=== PATIENT | female | born 1980 | race Caucasian/White ===

== ENCOUNTER 2017-05-06 09:48 | Emergency (ER) | payer MEDICARE, MEDICAID ==
[~2017-05-06] VITALS: Ht 167.6 cm; Wt 83.4 kg
[~2017-05-06 09:48] MED LIST: ARIP5TAB4 PO; CHL4T PO; CLOB10TA PO; CLON-528 PO; DEXT1CAP3 PO; ERGOCALCIFEROL PO; FEXO-124 PO; LACOSAMIDE PO; LAMO250T PO; LORA1TAB PO; MAGN30OR PO; Mineral Oil; PARO40TA81 PO; REM15T PO; RISP1TAB13 PO; RISP2TAB97 PO; [UNRECOGNIZED DRUG - CODE] DT
[2017-05-06] MEDS ORDERED: normal saline 1000ml 1,000 ML IV ONE (10:03)
[2017-05-06 10:35] LABS: BASOPHILS % (AUTO) 0.4 % (0-1); EOSINOPHILS # (AUTO) 0.2 X10'3 (0-0.9); EOSINOPHILS % (AUTO) 2.6 % (0-6); HEMATOCRIT 36.6 % (35.0-45.0); HEMOGLOBIN 12.8 g/dl (12.0-16.0); LYMPHOCYTES # (AUTO) 1.7 X10'3 (1.1-4.8); LYMPHOCYTES % (AUTO) 26.3 % (21-51); MEAN CORPUSCULAR HGB CONC 34.8 % (33.0-36.5); MEAN CORPUSCULAR VOLUME 86.2 FL (78-98); MEAN PLATELET VOLUME 6.9 FL (7.4-10.4); MONOCYTES # (AUTO) 0.3 X10'3 (0-0.9); NEUTROPHILS # (AUTO) 4.4 X10'3 (1.8-7.7); NEUTROPHILS % (AUTO) 66.7 % (42-75); PLATELET COUNT 259 X10'3 (140-440); RED BLOOD COUNT 4.25 X10'6 (4.20-5.60); RED CELL DISTRIBUTION WIDTH 12.9 % (11.5-14.5); WHITE BLOOD COUNT 6.6 X10'3 (4.5-11.0)
[2017-05-06 10:44] LABS: INR 0.9 INR; PARTIAL THROMBOPLASTIN TIME 26 SECONDS (22-32); PROTHROMBIN TIME 9.6 SECONDS (9.0-12.0)
[2017-05-06 10:58] LABS: ALANINE AMINOTRANSFERASE 104 U/L (12-78); ALBUMIN 3.3 G/DL (3.4-5.0); ALBUMIN/GLOBULIN RATIO 0.8 (1.1-1.5); ALKALINE PHOSPHATASE 142 IU/L (46-116); ANION GAP 8 (8-16); ASPARTATE AMINO TRANSFERASE 50 U/L (10-37); BILIRUBIN,TOTAL 0.4 MG/DL (0.1-1.0); BLOOD UREA NITROGEN 9 MG/DL (7-18); BUN/CREATININE RATIO 10.2 (6.6-38.0); CALCIUM 8.7 MG/DL (8.5-10.1); CHLORIDE 99 MMOL/L (99-107); CREATINE KINASE 121 U/L (26-192); CREATININE 0.88 MG/DL (0.40-0.90); GLUCOSE 100 MG/DL (70-104); MAGNESIUM 2.2 MG/DL (1.5-2.4); POTASSIUM 4.1 MMOL/L (3.5-5.1); SODIUM 134 MMOL/L (135-145); TOTAL CARBON DIOXIDE 26.8 MMOL/L (24-32); TOTAL PROTEIN 7.7 G/DL (6.4-8.2); eGFR 74 ML/MIN
[2017-05-06] MEDS ORDERED: iohexol 300mg/ml 100ml inj. ONE (11:00)
[2017-05-06] MEDS ORDERED: LORazepam 1 MG tablet PO ONE (11:50)
[2017-05-06 12:52] VITALS: BP 124/73
== END 2017-05-06 13:02 | disposition home or self-care (01) ==
LOC: ER 09:48
DX: R56.9 Unspecified convulsions (principal); Z79.899 Other long term (current) drug therapy; Z88.8 Allergy status to other drugs, medicaments and biological substances
CPT/HCPCS: 36415; 70470; 71045; 80053; 82550; 83735; 84443; 85025; 85610; 85730; 93005; 96360; 96361; 99285; J7030; Q9967

== ENCOUNTER 2018-10-09 14:58 | Emergency (ER) | payer MEDICARE, MEDICAID ==
[~2018-10-09] VITALS: Ht 162.6 cm; Wt 90.0 kg
--- NOTE | 2018-10-09 16:06 | NUR ---
DR CHANDLER CONSULTING WITH DR KARENA LIRIANO
[2018-10-09 16:32] VITALS: BP 124/78
[2018-10-10] MEDS ORDERED: MULT-685 PO (20:17)
[2018-10-10] MEDS ORDERED: IBUP-1985 PO (20:17)
[2018-10-10] MEDS ORDERED: LEVO1TBD13 PO (20:17)
[2018-10-10] MEDS ORDERED: OMEP-50 PO (20:17)
[2018-10-10] MEDS ORDERED: PALI6TAB PO (20:17)
[2018-10-10] MEDS ORDERED: DOCU100C33 PO (20:17)
[2018-10-10] MEDS ORDERED: PARO40TA4 PO (20:17)
[2018-10-10] MEDS ORDERED: KEN0.1O TP (20:17)
[2018-10-10] MEDS ORDERED: FLUT16SP2 BOTHNARES (20:17)
[2018-10-10] MEDS ORDERED: LACO200T2 PO (20:17)
[2018-10-10] MEDS ORDERED: GABA600T13 PO (20:17)
[2018-10-10] MEDS ORDERED: OXCA300T16 PO (20:17)
[2018-10-10] MEDS ORDERED: POLY17PO10 PO (20:17)
[2018-10-10] MEDS ORDERED: LORA10TA7 PO (20:17)
== END 2018-10-09 16:36 | disposition home or self-care (01) ==
LOC: ER 14:59
DX: T18.2XXA Foreign body in stomach, initial encounter (principal); S40.022A Contusion of left upper arm, initial encounter; S40.811A Abrasion of right upper arm, initial encounter; S80.812A Abrasion, left lower leg, initial encounter; S80.811A Abrasion, right lower leg, initial encounter; X58.XXXA Exposure to other specified factors, initial encounter; Y93.89 Activity, other specified; Y92.89 Other specified places as the place of occurrence of the external cause; Y99.8 Other external cause status
CPT/HCPCS: 74018; 99284

== ENCOUNTER 2018-10-10 18:08 | Observation (INO) | payer MEDICARE, MEDICAID ==
[~2018-10-10] VITALS: Ht 167.6 cm; Wt 102.3 kg
[2018-10-10] MEDS ORDERED: morphine 4 MG/ML inj SYRINge IV PRN (18:40)
[2018-10-10] MEDS ORDERED: normal saline 1000ML IV soln IVB ONE ×2 (18:40→20:00)
[2018-10-10] MEDS ORDERED: ondansetron/PF 4mg/2ml inj IV ONE (18:40)
--- NOTE | 2018-10-10 18:45 | NUR ---
PT MEDICAL ESTHETICIAN AT BEDSIDE
[2018-10-10 19:09] LABS: BASOPHILS % (AUTO) 0.4 % (0-1); EOSINOPHILS # (AUTO) 0.1 X10'3 (0-0.9); EOSINOPHILS % (AUTO) 1.4 % (0-6); HEMATOCRIT 31.2 % (35.0-45.0); HEMOGLOBIN 10.8 g/dl (12.0-16.0); LYMPHOCYTES # (AUTO) 2.6 X10'3 (1.1-4.8); LYMPHOCYTES % (AUTO) 28.1 % (21-51); MEAN CORPUSCULAR HEMOGLOBIN 30.4 PG (27.0-31.0); MEAN CORPUSCULAR HGB CONC 34.5 g/dL (33.0-36.5); MEAN PLATELET VOLUME 6.5 FL (7.4-10.4); MONOCYTES # (AUTO) 0.6 X10'3 (0-0.9); MONOCYTES % (AUTO) 6.8 % (2-12); NEUTROPHILS # (AUTO) 5.8 X10'3 (1.8-7.7); NEUTROPHILS % (AUTO) 63.3 % (42-75); PLATELET COUNT 219 X10'3 (140-440); RED BLOOD COUNT 3.55 X10'6 (4.20-5.60); RED CELL DISTRIBUTION WIDTH 12.9 % (11.5-14.5); WHITE BLOOD COUNT 9.2 X10'3 (4.5-11.0)
[2018-10-10 19:19] LABS: ALANINE AMINOTRANSFERASE 22 U/L (12-78); ALBUMIN 3.2 G/DL (3.4-5.0); ALKALINE PHOSPHATASE 74 IU/L (46-116); ANION GAP 6 (8-16); ASPARTATE AMINO TRANSFERASE 19 U/L (10-37); BILIRUBIN,TOTAL 0.2 MG/DL (0.1-1.0); BLOOD UREA NITROGEN 12 MG/DL (7-18); BUN/CREATININE RATIO 21.1 (6.6-38.0); CALCIUM 7.6 MG/DL (8.5-10.1); CHLORIDE 91 MMOL/L (99-107); CREATININE 0.57 MG/DL (0.40-0.90); GLUCOSE 88 MG/DL (70-104); POTASSIUM 3.9 MMOL/L (3.5-5.1); SODIUM 124 MMOL/L (135-145); TOTAL CARBON DIOXIDE 27.3 MMOL/L (24-32); TOTAL PROTEIN 6.5 G/DL (6.4-8.2); eGFR > 90 ML/MIN
[2018-10-10] MEDS ORDERED: OMEP-50 PO (20:17)
[2018-10-10] MEDS ORDERED: POLY17PO10 PO (20:17)
[2018-10-10] MEDS ORDERED: LEVO1TBD13 PO (20:17)
[2018-10-10] MEDS ORDERED: MULT-685 PO (20:17)
[2018-10-10] MEDS ORDERED: FLUT16SP2 BOTHNARES (20:17)
[2018-10-10] MEDS ORDERED: PALI6TAB PO (20:17)
[2018-10-10] MEDS ORDERED: GABA600T13 PO (20:17)
[2018-10-10] MEDS ORDERED: PARO40TA4 PO (20:17)
[2018-10-10] MEDS ORDERED: IBUP-1985 PO (20:17)
[2018-10-10] MEDS ORDERED: LORA10TA7 PO (20:17)
[2018-10-10] MEDS ORDERED: OXCA300T16 PO (20:17)
[2018-10-10] MEDS ORDERED: LACO200T2 PO (20:17)
[2018-10-10] MEDS ORDERED: KEN0.1O TP (20:17)
[2018-10-10] MEDS ORDERED: DOCU100C33 PO (20:17)
[2018-10-10] MEDS: normal saline 1000ml 1,000 ML IV SCH ×2 (20:36→22:52)
[2018-10-10] MEDS ORDERED: potassium CL 10mEq/100ml bag 100 ML IV PRN ×2 (20:40)
[2018-10-10] MEDS ORDERED: magnesium 2GM in 50ml NS 50 ML IV PRN (20:40)
[2018-10-10] MEDS ORDERED: acetaminophen 325mg tablet PO PRN ×2 (20:40)
[2018-10-10] MEDS ORDERED: magnesium Cl slow-release 64mg tablet PO PRN (20:40)
[2018-10-10] MEDS ORDERED: magnesium 4gm in 100ml NS 100 ML IV PRN (20:40)
[2018-10-10] MEDS ORDERED: magnesium hydroxide 30ml (MOM) UD suspension PO PRN (20:40)
[2018-10-10] MEDS ORDERED: ondansetron/PF 4mg/2ml inj IV PRN (20:40)
[2018-10-10] MEDS ORDERED: potassium Cl 20 mEq SR tablet PO PRN ×2 (20:40)
[2018-10-10] MEDS ORDERED: mag hydrox/Alum hydrox/simeth 30ml oral suspension PO PRN (20:40)
[2018-10-10 20:43] VITALS: BP 156/92
--- NOTE | 2018-10-10 20:45 | NUR ---
PT ADEELATOR JAD CALLED TO GIVE VERBAL CONSENT FOR PT TO GO TO GI LAB AND HAVE SCREW REMOVED FROM STOMACH. CONFIRMED CONSENT WITH GI NURSE
[2018-10-10] MEDS ORDERED: fentaNYL/PF 50MCG/1 ML 2ML syringe ONE (20:55)
[2018-10-10] MEDS ORDERED: LIDOcaine Viscous 15ml cup ONE (20:55)
[2018-10-10] MEDS ORDERED: MIDAZolam 5mg/5ml vial ONE (20:55)
[2018-10-10] MEDS ORDERED: non-formulary drug (Gabapentin 1 TAB) PO SCH (21:00)
[2018-10-10] MEDS: mirtazapine 15mg tablet PO SCH (21:00)
[2018-10-10 22:10] VITALS: BP 130/95
[2018-10-10 22:19] VITALS: BP 135/79
[2018-10-10 22:29] VITALS: BP 153/82
[2018-10-10 22:39] VITALS: BP 143/60
--- NOTE | 2018-10-10 23:01 | NUR ---
PT UP TO BEDSIDE COMMODE. RECEIVED [facility] AND CHANGED INTO HOSPITAL GOWN. CAREGIVER AT BEDSIDE.
--- NOTE | 2018-10-10 23:35 | NUR ---
PT UP TO BEDSIDE COMMODE. [facility] RECEIVED.
--- NOTE | 2018-10-11 03:01 | NUR ---
PT UP TO BS COMMODE TO VOID, BACK TO BED ALL TUCKED IN.
--- NOTE | 2018-10-11 05:11 | NUR ---
ASSISTED PT TO BEDSIDE COMMODE TO VOID. [facility] PROVIDED AND PT ASSISTED BACK TO BED. CAREGIVER AT BEDSIDE.
--- NOTE | 2018-10-11 06:00 | NUR ---
CAREGIVER AT BEDSIDE. PT SLEEPING IN BED. NO QUESTIONS/COMPLAINTS AT THIS TIME. WILL CONTINUE TO MONITOR.
--- NOTE | 2018-10-11 06:56 | NUR ---
Patient in room . I have received report from and had the opportunity to ask questions and assume patient care CAROLINA Ramirez (ER) New admit to O/N floor.
[2018-10-11 07:00] VITALS: BP 124/52
[2018-10-11] MEDS: K and/or MAG REPLACEMENT MC SCH (08:00)
[2018-10-11] MEDS: LACOSAMIDE 200 MG PO SCH ×2 (08:00→20:30)
[2018-10-11] MEDS: triamcinolone acet 0.1% cream 15gm TP SCH ×2 (08:00→20:00)
[2018-10-11] MEDS: fluticasone nasal spray 16GM bottle NS SCH (08:00)
[2018-10-11] MEDS: LEVONORGESTREL ETHIN ESTRADIOL PO SCH (08:00)
[2018-10-11] MEDS ORDERED: non-formulary drug (Paliperidone (Invega) 1 TAB) PO SCH (08:00)
[2018-10-11] MEDS ORDERED: ibuprofen 200mg tablet PO PRN (08:30)
--- NOTE | 2018-10-11 09:00 | NUR ---
pt home medication not brought in. Looking for follow up contacts to inquire. personal sitter in room does not have information. will continue to follow up. Clobazam 10mg tab, levonorgestrel-Ethin Estradiol 0.15-0.03mg tab, lacosamide (vimput) 200 mg tab
[2018-10-11] MEDS: pantoprazole 40mg Tablet.DR PO SCH (09:03)
[2018-10-11] MEDS: lamoTRIgine 25mg tablet PO SCH (09:04)
[2018-10-11] MEDS: gabapentin 300mg capsule PO SCH ×3 (09:04→21:49)
[2018-10-11] MEDS: oxcarbazepine 150mg tablet PO SCH (09:05)
[2018-10-11] MEDS: PARoxetine 20mg tablet PO SCH (09:05)
[2018-10-11] MEDS: loratadine 10mg tablet PO SCH (09:05)
[2018-10-11] MEDS: multivitamins, therapeutics tablet PO SCH (09:05)
[2018-10-11] MEDS: docusate sod 100mg capsule PO SCH ×2 (09:05→20:00)
[2018-10-11] MEDS: polyethylene glycol 3350 17gm powd pack PO SCH (09:06)
[2018-10-11] MEDS: aripiprazole 5mg tablet PO SCH (09:06)
[2018-10-11 09:08] LABS: BASOPHILS % (AUTO) 0.8 % (0-1); EOSINOPHILS # (AUTO) 0.1 X10'3 (0-0.9); EOSINOPHILS % (AUTO) 1.9 % (0-6); HEMATOCRIT 34.7 % (35.0-45.0); HEMOGLOBIN 11.6 g/dl (12.0-16.0); LYMPHOCYTES # (AUTO) 1.7 X10'3 (1.1-4.8); LYMPHOCYTES % (AUTO) 27.2 % (21-51); MEAN CORPUSCULAR HGB CONC 33.5 g/dL (33.0-36.5); MEAN CORPUSCULAR VOLUME 89.7 FL (78-98); MEAN PLATELET VOLUME 7.3 FL (7.4-10.4); MONOCYTES # (AUTO) 0.4 X10'3 (0-0.9); MONOCYTES % (AUTO) 6.2 % (2-12); NEUTROPHILS # (AUTO) 4.1 X10'3 (1.8-7.7); NEUTROPHILS % (AUTO) 63.9 % (42-75); PLATELET COUNT 230 X10'3 (140-440); RED BLOOD COUNT 3.86 X10'6 (4.20-5.60); RED CELL DISTRIBUTION WIDTH 13.1 % (11.5-14.5); WHITE BLOOD COUNT 6.3 X10'3 (4.5-11.0)
[2018-10-11 09:15] LABS: ALBUMIN 3.2 G/DL (3.4-5.0); ANION GAP 6 (8-16); BLOOD UREA NITROGEN 6 MG/DL (7-18); BUN/CREATININE RATIO 11.5 (6.6-38.0); CALCIUM 8.2 MG/DL (8.5-10.1); CHLORIDE 109 MMOL/L (99-107); CREATININE 0.52 MG/DL (0.40-0.90); GLUCOSE 86 MG/DL (70-104); POTASSIUM 4.5 MMOL/L (3.5-5.1); SODIUM 144 MMOL/L (135-145); TOTAL CARBON DIOXIDE 28.9 MMOL/L (24-32); eGFR > 90 ML/MIN
[2018-10-11 10:00] VITALS: BP 136/67
[2018-10-11] MEDS: normal saline 1000ml 1,000 ML IV SCH ×2 (16:36→23:31)
[2018-10-11] MEDS ORDERED: PEG 3350/Na sulf,bicarb,Cl/KCl oral sol 4 liter bottle PO ONE (17:00)
--- NOTE | 2018-10-11 17:50 | NUR ---
[facility]/Felisa(sitter)left to go retrieve Home medications from pt residence. Clobazam, Vimpat, Levonorgestrel. pt sleeping. Pt xray showed no movement of the hardware(screw) inside pt intestines. Order in for Go-Lightly. this will start in PM. Pt will need another xray/KUB of abd in the AM.
[2018-10-11 18:00] VITALS: BP 144/84
[2018-10-11] MEDS: mirtazapine 15mg tablet PO SCH (21:49)
[2018-10-11 22:00] VITALS: BP 111/49
[2018-10-12 06:00] VITALS: BP 112/47
[2018-10-12 06:22] LABS: BASOPHILS % (AUTO) 0.4 % (0-1); EOSINOPHILS # (AUTO) 0.2 X10'3 (0-0.9); HEMATOCRIT 35.9 % (35.0-45.0); LYMPHOCYTES # (AUTO) 1.6 X10'3 (1.1-4.8); LYMPHOCYTES % (AUTO) 29.6 % (21-51); MEAN CORPUSCULAR HGB CONC 33.6 g/dL (33.0-36.5); MEAN CORPUSCULAR VOLUME 89.4 FL (78-98); MEAN PLATELET VOLUME 6.7 FL (7.4-10.4); MONOCYTES # (AUTO) 0.4 X10'3 (0-0.9); MONOCYTES % (AUTO) 6.7 % (2-12); NEUTROPHILS # (AUTO) 3.3 X10'3 (1.8-7.7); NEUTROPHILS % (AUTO) 60.3 % (42-75); PLATELET COUNT 222 X10'3 (140-440); RED BLOOD COUNT 4.02 X10'6 (4.20-5.60); RED CELL DISTRIBUTION WIDTH 13.4 % (11.5-14.5); WHITE BLOOD COUNT 5.5 X10'3 (4.5-11.0)
[2018-10-12 06:25] LABS: ANION GAP 5 (8-16); BLOOD UREA NITROGEN 4 MG/DL (7-18); CHLORIDE 109 MMOL/L (99-107); CREATININE 0.57 MG/DL (0.40-0.90); GLUCOSE 84 MG/DL (70-104); POTASSIUM 3.8 MMOL/L (3.5-5.1); SODIUM 143 MMOL/L (135-145); TOTAL CARBON DIOXIDE 29.2 MMOL/L (24-32); eGFR > 90 ML/MIN
[2018-10-12] MEDS: oxcarbazepine 150mg tablet PO SCH (07:45)
[2018-10-12] MEDS: gabapentin 300mg capsule PO SCH (07:46)
[2018-10-12] MEDS: PARoxetine 20mg tablet PO SCH (07:46)
[2018-10-12] MEDS: loratadine 10mg tablet PO SCH (07:47)
[2018-10-12] MEDS: pantoprazole 40mg Tablet.DR PO SCH (07:47)
[2018-10-12] MEDS: lamoTRIgine 25mg tablet PO SCH (07:47)
[2018-10-12] MEDS: docusate sod 100mg capsule PO SCH (07:47)
[2018-10-12] MEDS: multivitamins, therapeutics tablet PO SCH (07:47)
[2018-10-12] MEDS: aripiprazole 5mg tablet PO SCH (07:48)
[2018-10-12] MEDS: polyethylene glycol 3350 17gm powd pack PO SCH (07:48)
[2018-10-12] MEDS: fluticasone nasal spray 16GM bottle NS SCH (07:49)
[2018-10-12] MEDS: K and/or MAG REPLACEMENT MC SCH (08:00)
[2018-10-12] MEDS: LEVONORGESTREL ETHIN ESTRADIOL PO SCH (08:00)
[2018-10-12] MEDS: triamcinolone acet 0.1% cream 15gm TP SCH (08:00)
[2018-10-12] MEDS: LACOSAMIDE 200 MG PO SCH (10:01)
[2018-10-12 12:28] VITALS: BP 138/69
[2018-10-12] MEDS ORDERED: MIDAZolam 5mg/5ml vial ONE (12:38)
[2018-10-12] MEDS ORDERED: fentaNYL/PF 50MCG/1 ML 2ML syringe ONE (12:38)
[2018-10-12 13:04] VITALS: BP 134/89
[2018-10-12 13:14] VITALS: BP 131/59
[2018-10-12 13:24] VITALS: BP 135/79
--- NOTE | 2018-10-12 17:30 | NUR ---
DISCHARGE: pt caregiver w/pt, pt denies pain, SOB, resp distress, N/V, dizziness at DC. removal of foreign object (screw) removed during colonoscopy procedure. No indications of damage to cecum noted. pt able to return to regular meals as tolerated. All necessary DC documents signed by caregivers and released to caregivers. Pt home medications returned to pt/caregivers. pt escorted LIZA by health care staff/pt insisted on ambulating. pt very happy to be going home. pt and caregivers thanked [facility] staff for the pt care.
== END 2018-10-12 17:30 | disposition home or self-care (01) ==
LOC: ER 18:08 → ORTHO 4S 10-11 07:10
PROVIDERS: ADMIT Hospitalist; ATTEND Hospitalist
DX: T18.4XXA Foreign body in colon, initial encounter (principal); T18.2XXA Foreign body in stomach, initial encounter; R10.9 Unspecified abdominal pain; Y93.89 Activity, other specified; Y92.098 Other place in other non-institutional residence as the place of occurrence of the external cause; R11.10 Vomiting, unspecified; E87.1 Hypo-osmolality and hyponatremia; G40.909 Epilepsy, unspecified, not intractable, without status epilepticus; Z98.890 Other specified postprocedural states; Z79.899 Other long term (current) drug therapy
CPT/HCPCS: 36415; 43247; 45379; 74018; 74176; 76000; 80048; 80053; 83735; 85025; 87081; 96361; 96374; 96375; 99284; C1769; C1773; G0378; J2250; J2270; J2405; J3010; J7030; J7040; 44390; 99152; 99153; 99285; A4620

== ENCOUNTER 2020-04-15 11:39 | Emergency (ER) | payer MEDICARE, MEDICAID ==
[~2020-04-15] VITALS: Ht 162.6 cm; Wt 82.5 kg
[~2020-04-15 11:39] MED LIST changes: +ARIP5TAB14 PO; -ARIP5TAB4 PO; -CHL4T PO; -CLON-528 PO; -DEXT1CAP3 PO; +DOCU100C33 PO; -ERGOCALCIFEROL PO; -FEXO-124 PO; +FLUT16SP2 BOTHNARES; +GABA600T13 PO; +IBUP-1985 PO; +KEN0.1O TP; +LACO200T2 PO; -LACOSAMIDE PO; +LEVO1TBD13 PO; +LORA10TA7 PO; -LORA1TAB PO; -MAGN30OR PO; +MULT-685 PO; -Mineral Oil; +OMEP-50 PO; +OXCA300T16 PO; +PARO40TA4 PO; -PARO40TA81 PO; +POLY17PO10 PO; -RISP1TAB13 PO; -RISP2TAB97 PO; -[UNRECOGNIZED DRUG - CODE] DT
[2020-04-15 12:30] LABS: BASOPHILS % (AUTO) 0.6 % (0-1); EOSINOPHILS # (AUTO) 0.1 X10'3 (0-0.9); EOSINOPHILS % (AUTO) 1.9 % (0-6); HEMATOCRIT 32.9 % (35.0-45.0); HEMOGLOBIN 11.2 g/dl (12.0-16.0); LYMPHOCYTES # (AUTO) 1.3 X10'3 (1.1-4.8); LYMPHOCYTES % (AUTO) 26.5 % (21-51); MEAN CORPUSCULAR HEMOGLOBIN 30.9 PG (27.0-31.0); MEAN CORPUSCULAR VOLUME 90.8 FL (78-98); MEAN PLATELET VOLUME 6.9 FL (7.4-10.4); MONOCYTES # (AUTO) 0.3 X10'3 (0-0.9); MONOCYTES % (AUTO) 5.8 % (2-12); NEUTROPHILS # (AUTO) 3.1 X10'3 (1.8-7.7); NEUTROPHILS % (AUTO) 65.2 % (42-75); PLATELET COUNT 180 X10'3 (140-440); RED BLOOD COUNT 3.62 X10'6 (4.20-5.60); RED CELL DISTRIBUTION WIDTH 12.9 % (11.5-14.5); WHITE BLOOD COUNT 4.8 X10'3 (4.5-11.0)
[2020-04-15 12:47] LABS: ALANINE AMINOTRANSFERASE 24 U/L (12-78); ALBUMIN 3.6 G/DL (3.4-5.0); ALBUMIN/GLOBULIN RATIO 1.1 (1.1-1.5); ALKALINE PHOSPHATASE 56 IU/L (46-116); ANION GAP 6 (8-16); ASPARTATE AMINO TRANSFERASE 27 U/L (10-37); BILIRUBIN,TOTAL 0.4 MG/DL (0.1-1.0); BLOOD UREA NITROGEN 13 MG/DL (7-18); CALCIUM 8.3 MG/DL (8.5-10.1); CHLORIDE 98 MMOL/L (99-107); CREATININE 0.52 MG/DL (0.40-0.90); GLUCOSE 88 MG/DL (70-104); POTASSIUM 4.2 MMOL/L (3.5-5.1); SODIUM 133 MMOL/L (135-145); TOTAL CARBON DIOXIDE 29.4 MMOL/L (24-32); TOTAL PROTEIN 6.8 G/DL (6.4-8.2); eGFR > 90 ML/MIN
[2020-04-15 12:58] LABS: BETA HCG,QUANTITATIVE < 1.0 mIU/ml
[2020-04-15 15:52] VITALS: BP 122/65
== END 2020-04-15 15:50 | disposition home or self-care (01) ==
LOC: ER 11:40
DX: T18.198A Other foreign object in esophagus causing other injury, initial encounter (principal); R62.50 Unspecified lack of expected normal physiological development in childhood; G43.909 Migraine, unspecified, not intractable, without status migrainosus; Z79.899 Other long term (current) drug therapy; X58.XXXA Exposure to other specified factors, initial encounter; Y93.89 Activity, other specified; Y92.89 Other specified places as the place of occurrence of the external cause; Y99.8 Other external cause status
CPT/HCPCS: 36415; 71250; 74176; 80053; 84702; 85025; 99284

== ENCOUNTER 2021-05-04 08:52 | Outpatient (CLI) | payer MEDICARE, MEDICAID ==
[~2021-05-04 08:52] MED LIST changes: -OMEP-50 PO; +OMEP20CA16 PO
== END 2021-05-04 23:59 | disposition home or self-care (01) ==
LOC: RAD 08:52
PROVIDERS: ATTEND Nurse Practitioner Family
DX: G40.919 Epilepsy, unspecified, intractable, without status epilepticus (principal)
CPT/HCPCS: 95816

== ENCOUNTER 2025-02-04 16:19 | Emergency (ER) | payer MEDICARE, MEDICAID ==
[~2025-02-04] VITALS: Ht 157.5 cm; Wt 92.6 kg
[~2025-02-04 16:19] MED LIST changes: +ARIP5TAB12 PO; -ARIP5TAB14 PO; +GABA-1405 PO; -GABA600T13 PO; -IBUP-1985 PO; +IBUP600T52 PO
[2025-02-04 16:41] VITALS: BP 139/78; PULSE 79; RESP 16; O2SAT 98
--- NOTE | 2025-02-04 19:02 | Physician Documentation ---
History of Present Illness ~ Chief Complaint: Toe pain Stated Complaint: INFECTED TOE Time Seen by MD: 18:54 Primary Medical Doctor: DAINA URIBE HPI 44-year-old developmentally delayed female presents today with a complaint of right great toe pain. According to her caregiver her toe was considerably worse yesterday and drained purulent discharge. The patient states that it does not hurt as much today in the caregiver reports that she has not been complaining nearly as much. No fevers were reported no nausea vomiting Day of Onset: Feb 04, 2025 Tetanus witin 5 years: Yes (11/16/09) Medication Reconciliation Allergies: Coded Allergies: carbamazepine (Unverified Allergy, Unknown, possible hyponatremia, 02/04/25) clonazepam (Unverified Allergy, Unknown, 02/04/25) temozolomide (Unverified Allergy, Unknown, BULLOUS LESIONS, 02/04/25) valproic acid (Unverified Allergy, Unknown, 02/04/25) Uncoded Allergies: TOPIRIMATE (Allergy, Unknown, increased irritablity and behavioral problems, 08/22/13) TRICYLICS (Allergy, Unknown, 04/15/20) Scheduled Aripiprazole* (Abilify*), 30 MG PO DAILY, (Reported) Clobazam (Onfi), 1 TAB PO BID, (Reported) Docusate Sodium (Dok), 1 CAP PO BID, (Reported) Fluticasone Propionate (Flonase), 1 SPRAYS BOTHNARES DAILY, (Reported) Gabapentin (Gabapentin), 1 TAB PO TID, (Reported) Lacosamide (Vimpat), 1 TAB PO BID, (Reported) Lamotrigine* (Lamictal Xr*), 150 MG PO DAILY, (Reported) Levonorgestrel-Ethin Estradiol (Setlakin 0.15 mg-0.03 mg Tab), 1 TAB PO DAILY, (Reported) Loratadine (Loratadine), 1 TAB PO DAILY, (Reported) Mirtazapine* (Remeron*), 30 MG PO HS, (Reported) Multivits, W-Fe,Other Min (Thera-M), 1 TAB PO DAILY, (Reported) Mupirocin* (Bactroban*), 1 APPLIC TOP Q8H Omeprazole (Omeprazole), 1 CAP PO DAILY, (Reported) Oxcarbazepine (Oxcarbazepine), 1 TAB PO DAILY, (Reported) Paroxetine HCl (Paroxetine HCl), 1 TAB PO DAILY, (Reported) Polyethylene Glycol 3350* (Miralax*), 1 PKT PO DAILY, (Reported) Triamcinolone Acetonide 0.1% Crm* (Kenalog 0.1% Crm*), 1 APPLIC TP BID, (Reported) Scheduled PRN Ibuprofen (Ibuprofen), 1 TAB PO TID PRN PRN for pain, (Reported) Past Medical History 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 Physical Exam Vital Signs: Temperature: 96.5, Source: Oral, Heart Rate: 79, Respiratory Rate: 16, BP: 139/78, Pulse Oximetry: 98, Weight: 92.600 Physical Exam General: Alert, no apparent distress. Extremities: Normal range of motion, mild erythema in the surrounding tissue of the nail bed appears to be a nail buried in the toe in the lateral aspect of the right great toe Neurologic: Oriented x4. Psychiatric: Normal mood and affect. Skin: Normal color, warm and dry. No edema, no ecchymosis. 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 Mupirocin Nasal Ointment (Bactroban Nasa (02/04/25 19:05) Medications Received in ER Medications (Trade) Dose Ordered Sig/Lesvia Route PRN Reason Start Time Stop Time Status Last Admin Dose Admin (Bactroban Nasal Ointment) 1 applic NOW STAT NS 02/04/25 19:05 02/04/25 19:06 DC 02/04/25 19:18 1 APPLIC Vital Signs 02/04/25 02/04/25 16:41 19:13 Temp 96.5 96.5 Pulse 79 Resp 16 B/P (MAP) 139/78 Pulse Ox 98 Medical Decision Making Additional information obtaine: old records Findings I offered to repair the paronychia however the patient did not want to go through the procedure in the manager primary care said that they would rather try topical antibiotics prior to having part of the nail removed General Diff Dx:Considerations: Unlikely: Abrasion, Contusion, Fracture, Hematoma, Laceration, Malunion, Neurovascular injury, Open fracture, Sprain, Ulcer, Other Knee Diff Dx:Considerations: Unlikely: Abrasion, Arthritis, Contusion, DJD, Fracture-femur, Fracture-fibula, Fracture-patella, Fracture-tibia, Gout, Hematoma, Laceration, Meniscus injury, Neurovascular injury, Open fracture, Rheumatoid arthritis, Septic, Sprain, Sprain-MCL, Sprain-LCL, Sprain-ACL, Sprain-PCL, Other Ankle Diff Dx:Considerations: Unlikely: Abrasion, Arthritis, Contusion, DJD, Fracture-metatarsal, Fracture-fibula, Fracture-tarsal, Fracture-tibia, Gout, Hematoma, Laceration, Malunion, Neurovascular injury, Nonunion, Open fracture, Osteomyelitis, Rheumatoid arthritis, Sprain, Septic, Ulcer, Other Foot Diff Dx:Considerations: Unlikely: Abrasion, Arthritis, Cellulitis, Contusion, Dislocation, DJD, Fracture-metatarsal, Fracture-phalynx, Fracture- tarsal, Gout, Hematoma, Ingrown toenail, Laceration, Malunion, Neurovascular injury, Open fracture, Paronychia, Puncture, Rheumatoid, Sprain, Septic, Subungual hematoma, Ulcer, Other Toe Diff Dx:Considerations: Include: Abrasion, Cellulitis, Contusion, Dislocation, Felon, Fracture, Hematoma, Laceration, Neurovascular injury, Open fracture, Paronychia, Subungual hematoma, Other Departure Disposition: 01 HOME / SELF CARE / HOMELESS Impression: Primary Impression: Toe swelling Additional Impression: Paronychia Condition: Improved Discharge Instructions: Ingrown Toenail Referrals: NO PRIMARY CARE PROVIDER (PCP) Prescriptions Mupirocin* (Bactroban*) 22 Gm Tube 1 APPLIC TOP Q8H for 5 Days, #15 GM apply to affected area(s) Prov: ANA MARIA BRAMBILA NP 02/04/25 Signature Scribe Signature: [facility] Attestation: Scribed for Ana Maria Brambila [employer] by Ana Maria Brambila - PTARICIA . 02/04/25 20:54 ANA MARIA BRAMBILA NP Feb 04, 2025 19:02
[2025-02-04] MEDS ORDERED: MUPI22OI30 TOP (19:05)
[2025-02-04 19:13] VITALS: TEMP 96.5
[2025-02-04] MEDS: mupirocin 2% nasal ointment 1gm UD NS STA (19:18)
== END 2025-02-04 19:20 | disposition home or self-care (01) ==
LOC: ER 16:20
DX: L03.031 Cellulitis of right toe (principal); Z88.8 Allergy status to other drugs, medicaments and biological substances
CPT/HCPCS: 99283